=== PATIENT | male | born 2000 | race African-American/Black ===

== ENCOUNTER 2019-11-13 23:04 | Emergency (ER) | payer BC, MEDICAID ==
[~2019-11-13] VITALS: Ht 175.3 cm; Wt 79.5 kg
[2019-11-13] MEDS ORDERED: PROAAER10 INH (23:09)
[2019-11-13] MEDS ORDERED: GI COCKTAIL 50ML BTL(HYOSCYAMINE/MAALOX/LIDOCAINE VISCOUS)(1:3:1) PO ONE (23:30)
[2019-11-14] MEDS ORDERED: ACETAMINOPHEN TAB 650MG DOSE (2X325MG) PO ONE (00:30)
[2019-11-14] MEDS ORDERED: BACLOFEN 10 MG TAB PO ONE (01:00)
[2019-11-14] MEDS ORDERED: ZANT150T40 PO (01:12)
[2019-11-14] MEDS ORDERED: BACL5TAB2 PO (01:12)
[2019-11-14 01:17] VITALS: BP 110/65
== END 2019-11-14 01:19 | disposition home or self-care (01) ==
LOC: M ED 23:04
DX: R06.6 Hiccough (principal); R12 Heartburn; J45.909 Unspecified asthma, uncomplicated

== ENCOUNTER 2021-01-14 08:03 | Emergency (ER) | payer BC, MEDICAID ==
[~2021-01-14] VITALS: Ht 175.3 cm; Wt 64.4 kg
[~2021-01-14 08:03] MED LIST: BACL5TAB2 PO; PROAAER10 INH; ZANT150T40 PO
[2021-01-14] MEDS ORDERED: GI COCKTAIL 50ML BTL(HYOSCYAMINE/MAALOX/LIDOCAINE VISCOUS)(1:3:1) PO ONE (11:25)
[2021-01-14] MEDS ORDERED: BACLOFEN 10 MG TAB PO ONE (11:30)
--- NOTE | 2021-01-14 11:54 | REP ---
INDICATION: "air in my chest". COMPARISON: None. TECHNIQUE: Two views FINDINGS: The lungs are well inflated. There is no pleural effusion or lateral pleural thickening I see no apical scar or pneumothorax. There is no pneumomediastinum. No infiltrate, atelectasis, mass or pulmonary nodule visible. The heart, mediastinal and hilar contours, aorta and airway were unremarkable. Bony thorax shows no compression deformity or focal lesion. There is no free air under the diaphragm. IMPRESSION: Normal PA lateral chest. No evidence of pneumothorax, pneumomediastinum or other acute finding. <Electronically signed by Donta Gama > 01/14/21 [id number]
[2021-01-14 11:56] LABS: BASO % 0.2 % (0.0-1.0); EOS # 0.3 10^3/uL (0.0-0.5); EOS % 3.4 % (0.0-3.0); HEMATOCRIT 42.2 % (42.0-52.0); HEMOGLOBIN 13.9 g/dl (13.5-17.5); LYMPH # 3.9 10^3/uL (1.5-5.0); LYMPH % 48.2 % (24.0-44.0); MEAN CORPUSCULAR HEMOGLOBIN 29.4 pg (27.0-33.0); MEAN CORPUSCULAR HGB CONC 32.9 g/dl (32.0-36.5); MEAN CORPUSCULAR VOLUME 89.2 fl (80.0-96.0); MONO # 0.6 10^3/uL (0.0-0.8); NEUTROPHILS # 3.3 10^3/uL (1.5-8.5); NEUTROPHILS % 41.1 % (36.0-66.0); PLATELET COUNT, AUTOMATED 270 10^3/uL (150-450); RED BLOOD COUNT 4.73 10^6/uL (4.30-6.10)
[2021-01-14 12:12] LABS: BLOOD UREA NITROGEN 19 MG/DL (7-18); CALCIUM LEVEL 9.2 MG/DL (8.5-10.1); CARBON DIOXIDE LEVEL 30 MEQ/L (21-32); CHLORIDE LEVEL 108 MEQ/L (98-107); CK-MB VALUE MASS 1.1 NG/ML (<3.6); CPK CREATINE PHOSPHOKINASE 224 U/L (39-308); GLOMERULAR FILTRATION RATE > 60.0 (>60); GLUCOSE, FASTING 92 MG/DL (70-100); MB/CK RELATIVE INDEX 0.49 (< OR =4); POTASSIUM SERUM 3.3 MEQ/L (3.5-5.1); SODIUM LEVEL 142 MEQ/L (136-145); TROPONIN I < 0.02 NG/ML (< 0.10)
[2021-01-14] MEDS ORDERED: OMEP40CA97 PO (13:20)
[2021-01-14 13:30] VITALS: BP 122/66
--- NOTE | 2021-01-14 20:31 | ECGEPIP ---
[facility] - ED Test Date: 2021-01-14 Pat Name: CIELO BRENNAN Department: Room: - Gender: Male Doctor Of Dental Surgery: DOMINIC : 2000 Requested By: Jose Chung Order Number: [id number] Reading MD: Jose Bradley Measurements Intervals [place] Rate: 54 P: 53 AK: 164 QRS: 74 QRSD: 88 T: 57 QT: 394 QTc: 373 Interpretive Statements Sinus bradycardia BENIGN EARLY REPOLARIZATION NO PRIORS FOR COMPARISON Electronically Signed on 01-14-2021 20:30:57 EDT by Jose Bradley
== END 2021-01-14 13:40 | disposition home or self-care (01) ==
LOC: M ED 08:03
DX: K21.9 Gastro-esophageal reflux disease without esophagitis (principal); R06.6 Hiccough; R00.1 Bradycardia, unspecified; L30.9 Dermatitis, unspecified; F17.200 Nicotine dependence, unspecified, uncomplicated; F12.10 Cannabis abuse, uncomplicated